=== PATIENT | female | born 1985 | race Caucasian/White ===

== ENCOUNTER 2023-05-14 08:33 | Outpatient (CLI) | payer OTHER, SELFPAY ==
--- NOTE | ~2023-05-14 | MR_ITS ---
MRI of the lumbar spine Clinical History: Radiculopathy Technique: Axial T2-weighted images, and sagittal T1-weighted, T2-weighted, and T2 fat-sat images wer e acquired. Findings: There is no fracture or subluxation of the lumbar spine. Vertebral bodies maintain normal h eight and alignment. No bone marrow signal abnormality seen. At L1-L2 and L2-L3, there is no disc bulge or herniation. No spinal canal stenosis or neural foramina l narrowing at these levels. At L3-L4, there is no disc bulge or herniation. There is moderate facet arthropathy. No spinal canal stenosis or neural foraminal narrowing. At L4-L5, there is no disc bulge or herniation. There is mild to moderate facet arthropathy. No centr al canal stenosis or neural foraminal narrowing. At L5-S1, there is no disc bulge or herniation. There is moderate facet arthropathy. No central canal stenosis or neural foraminal narrowing. Paravertebral soft tissues are unremarkable. IMPRESSION: Mild to moderate facet joint degenerative changes, otherwise unremarkable exam. Reviewed, dictated and finalized at [facility].
== END 2023-05-14 08:34 | disposition home or self-care (01) ==
PROVIDERS: PCP Internal Medicine; Visit Provider Internal Medicine
DX: M54.16 Radiculopathy, lumbar region (principal)
CPT/HCPCS: 72148